=== PATIENT | female | born 1960 | race Caucasian/White ===

== ENCOUNTER 2019-12-10 17:58 | Emergency (ER) | payer OTHER, MEDICAID, SELFPAY ==
[2019-12-10 18:20] VITALS: BP 138/68; PULSE 102; RESP 20; O2SAT 98; BMI 24.7
--- NOTE | 2019-12-10 18:49 | ED_ITS ---
HPI - Abdominal Pain General Chief Complaint: Abdominal Pain Stated Complaint: cancer, constipation 7 days Time Seen by Provider: 12/10/19 18:37 Source: patient and family Mode of arrival: Ambulatory Limitations: no limitations History of Present Illness HPI narrative: Patient here for abdominal pain secondary to constipation. No bowel movement for the past 7 days. Patient is on opiates for cancer pain specifically with the spine. Patient diagnosed with advanced stage breast cancer with metastatic this early November 2019. Patient has lesions on the lower spine. Unable to sit or lay down. Patient prefers to remain in a seated position while in her room. Is able stand feels more comfortable at time standing. Has history of hemorrhoids as well. Patient states has constipation distant history with hemorrhoids as well. Magnesium citrate causes her hemorrhoids to bleed. She tried oral laxatives without resolved. Also 3 enemas today without resolved. Patient states early workup in November there might have been some inflammation on a CT scan regarding the colon. Related Data Home Medications Medication Instructions Recorded Confirmed ibuprofen 800 mg PO TID #0 12/03/16 Previous Rx's Medication Instructions Recorded methocarbamol [Robaxin-750] 750 mg PO QIDP PRN #40 tab 12/03/16 tramadol 0 tab PO Q6HP PRN #20 tab 12/03/16 Allergies Allergy/AdvReac Type Severity Reaction Status Date / Time aspirin [ASPIRIN] Allergy Unknown Unverified 09/12/17 12:45 Review of Systems Review of Systems Narrative: GENERAL: Denies chills, fatigue, malaise, fever, sweats. HEENT: Denies sinus pain, ear pain, sore throat, difficulty swallowing, dizziness. RESPIRATORY: Denies dyspnea, cough, wheezing, hemoptysis, sputum. CARDIOVASCULAR: Denies chest pain, palpitations, orthopnea, edema, GASTROINTESTINAL: Denies nausea, vomiting, complains of abdominal distention and constipation. : Denies dysuria, frequency, incontinence, hematuria, urinary retention. MUSCULOSKELETAL: denies weakness, joint pain, or bony pain SKIN: Denies rash, skin lesions, or other NEUROLOGIC: Denies weakness, headache, numbness, change in speech, confusion, seizures, incoordination. PSYCHIATRIC: No concerning psychosocial issues. ROS Unobtainable: All systems reviewed & are unremarkable except as noted in HPI and below Patient History Social History Smoking Status: Current every day smoker Smoking Status: Current every day smoker Substance Use Type: does not use Exam Narrative Exam Narrative: GENERAL: patient appears stated age. Well-nourished, well- developed patient, in no distress, not toxic HEAD: Atraumatic. Normocephalic. EYES: Pupils equal round and reactive. ENT: Nose without bleeding, purulent drainage. Throat without erythema, tonsillar hypertrophy or exudate. Airway patent. NECK: Trachea midline. Non tender CARDIOVASCULAR: Regular rate and rhythm without murmurs, gallops, or rubs. RESPIRATORY: Clear to auscultation. Breath sounds equal bilaterally. No wheezes, rales, or rhonchi. GASTROINTESTINAL: Abdomen soft, slightly distended normal bowel sounds, no peritoneal signs, slightly diffusely tender EXTREMITIES: No edema or joint tenderness. BACK: Limited range of motion due to chronic pain. Patient prefers to stand. Requires assist with maneuvering from walker to the bed. Has spasms on bilateral paralumbar and parathoracic muscles. NEURO: AOx3. SKIN: No rash or erythema of visible areas Initial Vital Signs Initial Vital Signs: Vital Signs Pulse Rate 102 H 12/10/19 18:20 Respiratory Rate 20 12/10/19 18:20 Blood Pressure 138/68 12/10/19 18:20 Pulse Oximetry 98 12/10/19 18:20 Course Course Course Narrative: Patient has been very uncomfortable with her back pain throughout stay here. There is a new compression fracture that has exacerbated her back pain. She does have muscle spasms. Enema was given but unsuccessful w ith stool output. Patient does not want to stay any longer in desires to go home and keep her appointment tomorrow that she has. Orders Ordered: ED Orders 12/10/19 18:48 CT abdomen pelvis wo con Stat 12/10/19 19:15 Complete Blood Count AUTO DIFF Stat Comprehensive Metabolic Panel Stat Discontinued Medications Diazepam (Valium) 5 mg IV NOW ONE Stop: 12/10/19 20:34 Last Admin: 12/10/19 20:46 Dose: 5 mg Documented by: INGRID Diazepam (Valium) 2.5 mg IV NOW ONE Stop: 12/10/19 22:53 Last Admin: 12/10/19 22:57 Dose: 2.5 mg Documented by: MMCFARL Sodium Chloride (Normal Saline 0.9%) 1,000 mls @ 1,000 mls/hr IV BOLUS ONE Stop: 12/10/19 19:46 Last Infusion: 12/10/19 21:34 Dose: 0 mls/hr Documented by: Admin: 12/10/19 19:37 Dose: 1,000 mls/hr Documented by: INGRID Methylnaltrexone [place] (Relistor) 12 mg SUBCUT NOW ONE Stop: 12/10/19 19:46 Last Admin: 12/10/19 19:54 Dose: 12 mg Documented by: INGRID Mineral Oil (Mineral Oil Enema) 1 each NV NOW ONE Stop: 12/10/19 22:23 Last Admin: 12/10/19 23:08 Dose: 1 each Documented by: CAYLA Morphine Sulfate (Morphine) 4 mg IV NOW ONE Stop: 12/10/19 19:26 Last Admin: 12/10/19 19:34 Dose: 4 mg Documented by: INGRID Ondansetron HCl (Zofran) 4 mg IV NOW ONE Stop: 12/10/19 19:26 Last Admin: 12/10/19 21:21 Dose: Not Given Documented by: CAYLA Reevaluation(s) Reevaluation #1: Patient no longer desires to stay for any more attempts for enemas or for bowel relief. Patient and desire discharge home. Does not want ortho spine contacted or referred to another hospital. She desires discharge home. Time: 00:39 Consultations Consultation #1: s/w dr jett, orthopedics, patient can follow-up with family physician/primary care for referral to Ortho Spine. No acute intervention indicated at this time Time: 00:52 Vital Signs Vital signs: Vital Signs - 8 hr 12/10/19 22:38 12/11/19 01:12 Temperature 98.4 F Pulse Rate 63 Respiratory Rate 12 Blood Pressure 168/90 H Pulse Oximetry 99 MDM - Abdominal Pain Lab Data Result diagrams: 12/10/19 19:15 12/10/19 19:15 Labs: Lab Results 12/10/19 12/10/19 Range/Units 19:15 19:15 WBC 8.2 (4.5-11.0) X10^3/uL RBC 4.11 (4.0-5.2) X10^6/uL Hgb 12.6 (12.0-16.0) g/dL Hct 37.1 (36-46) % MCV 90.4 (80-100) fL MCH 30.7 (26-34) PG MCHC 33.9 (30-36) % RDW 17.6 H (11.6-14.8) % Plt Count 342 (150-400) X10^3/uL Neut % (Auto) 64.3 (50-75) % Lymph % (Auto) 20.9 L (25-40) % [place] % (Auto) 11.2 (3-14) % Eos % (Auto) 2.7 (2-4) % Baso % (Auto) 0.9 (0-2) % Neut # (Auto) 5300 (7116-3061) /uL Lymph # (Auto) 1700 (3251-4659) /uL [place] # (Auto) 900 (0-900) /uL Eos # (Auto) 200 (0-450) /uL Baso # (Auto) 100 (0-100) /uL Sodium 134 L (137-145) mmol/L Potassium 4.1 (3.4-5.1) mmol/L Chloride 101 (98-107) mmol/L Carbon Dioxide 17 L (22-32) mmol/L BUN 6 L (7-17) mg/dL Creatinine 0.69 (0.52-1.04) mg/dL Estimated GFR > 60.0 (>60) mL/min BUN/Creatinine Ratio 8.7 (6-22) Glucose 89 (80-110) mg/dL Calcium 9.8 (8.4-10.2) mg/dL Total Bilirubin 0.5 (0.2-1.3) mg/dL AST 36 (14-36) IU/L ALT 11 (<35) IU/L Alkaline Phosphatase 617 H (38-126) U/L Total Protein 8.2 (6.3-8.2) g/dL Albumin 4.5 (3.5-5.0) g/dL Globulin 3.7 (1.7-4.1) g/dL Albumin/Globulin Ratio 1.2 (1.0-2.8) Imaging Data CT scan - abdomen/pelvis: Radiologist's Impression: [address] [address] [address] Scan Report Signed Patient: Megan JimMR#: [id number] : 8Acct:[id number] Age/Sex: 59 / FDate of Service: 12/10/19 Loc: ED Accession Number: [id number] Procedure: CT abdomen pelvis wo con Ordering Provider: Bert Mullins MD PROCEDURE: CT ABDOMEN PELVIS WO CON INDICATIONS: Abdominal pain TECHNIQUE: Noncontrast 5 mm thick sections acquired from the diaphragms to the symphysis. 5 mm thick coronal and sagittal reformats were then performed. For radiation dose reduction, the following was used: automated exposure control, adjustment of mA and/or kV according to patient size. COMPARISON: [facility], CT, CT CHEST ABDOMEN PELVIS WITH CONTRAST, 11/01/2019, 15:00. FINDINGS: Image quality: Excellent. Lung bases: There are small effusions bilaterally, decreased compared to 11/01/2019. Heart size is normal. There is a small hiatal hernia. Urinary system: Both kidneys are normal in size. No kidney stones. No hydronephrosis or perinephric fat stranding. Both ureters appear non-dilated throughout their expected courses. Bladder wall thickness is normal; no calcified bladder stones. Other solid organs: Liver is normal in size. Gallbladder is normal. Pancreas is normal in contours. Spleen is normal in size. No adrenal nodules. Peritoneum and bowel: There is a large amount of stool in colon. Unenhanced bowel loops demonstrate normal wall thickness and caliber. No free fluid or air. Nodes and vessels: No retroperitoneal or mesenteric adenopathy by size criteria. Aorta and inferior vena cava are normal in caliber. Abdominal wall: No ventral hernias. Pelvis: No free pelvic fluid. No inguinal hernias or adenopathy. Bones: Extensive osseous metastasis with mixed lytic and blastic lesions. Moderate compression fracture of T11, secondary to pathological fracture. This finding is new since 11/01/2019. No vertebral body compression fractures. IMPRESSION: 1. No acute intra-abdominal or pelvic process. The exam, however, is limited in the absence of IV and oral contrast. 2. A large amount of stool in colon. 3. Small pleural effusions bilaterally, decreased compared to the last CT on 11/01/2019. 4. Small hiatal hernia. 5. Extensive osseous metastases. 6. New moderate compression fracture of T11, compatible with a pathological fracture. Dictated by: Chey Espinal M.D. on 12/10/2019 at 19:42 Approved by: Chey Espinal M.D. on 12/10/2019 at 19:51 MDM Narrative Medical decision making narrative: Spoke with patient regarding compression fracture. No neuro deficits. Patient desires to follow up with her providers. Has an appointment tomorrow with her provider. No neuro deficits. Discharge Plan Departure Patient Disposition: Home Clinical Impression: Compression fracture Constipation Qualifiers: Constipation type: unspecified constipation type Qualified Code(s): K59.00 - Constipation, unspecified Discharge Date/Time: 12/11/19 01:12 Instructions: Vertebral Compression Fracture, DI for Constipation Activity Restrictions/Additional Instructions: Return immediately if worse or if any concerns or questions. See your doctor tomorrow as scheduled. Records will be available for your doctor regarding tests that were done tonight. See family doctor regarding compression fracture in of the vertebrae and referral to Ortho clinical documentation specialist. Continue home medications Prescriptions: No Action ibuprofen 800 MG tablet 800 mg PO TID Qty: 0 RF: 0 tramadol 50 MG tablet 0 tab PO Q6HP PRNQty: 20 RF: 0 methocarbamol [Robaxin-750] 750 MG tablet 750 mg PO QIDP PRNQty: 40 RF: 0
[2019-12-10 19:20] LABS: Add Manual Diff / Slide Review NO; Basophils Absolute Auto 100 /uL (0-100); Basophils Percent Auto 0.9 % (0-2); Eosinophils Absolute Auto 200 /uL (0-450); Eosinophils Percent Auto 2.7 % (2-4); Hematocrit 37.1 % (36-46); Hemoglobin 12.6 g/dL (12.0-16.0); Lymphocytes Absolute Auto 1700 /uL (1100-4500); Lymphocytes Percent Auto 20.9 % (25-40); Mean Corpuscular HGB Conc 33.9 % (30-36); Mean Corpuscular Hemoglobin 30.7 PG (26-34); Mean Corpuscular Volume 90.4 fL (80-100); Monocytes Absolute Auto 900 /uL (0-900); Monocytes Percent Auto 11.2 % (3-14); Neutrophils Absolute Auto 5300 /uL (1500-7000); Neutrophils Percent Auto 64.3 % (50-75); Platelet Count 342 X10^3/uL (150-400); Red Blood Cell Count 4.11 X10^6/uL (4.0-5.2); Red Cell Distribution Width 17.6 % (11.6-14.8); White Blood Cell Count 8.2 X10^3/uL (4.5-11.0)
[2019-12-10 19:32] LABS: Alanine Aminotransferase 11 IU/L (<35); Albumin 4.5 g/dL (3.5-5.0); Albumin Globulin Ratio 1.2 (1.0-2.8); Alkaline Phosphatase 617 U/L (38-126); Aspartate Aminotransferase 36 IU/L (14-36); BUN Creatinine Ratio 8.7 (6-22); Bilirubin Total 0.5 mg/dL (0.2-1.3); Blood Urea Nitrogen 6 mg/dL (7-17); Calcium 9.8 mg/dL (8.4-10.2); Carbon Dioxide 17 mmol/L (22-32); Chloride 101 mmol/L (98-107); Estimated Glomerular Filt Rate > 60.0 mL/min (>60); Globulin 3.7 g/dL (1.7-4.1); Glucose 89 mg/dL (80-110); HEMOLYSIS < 15 (0-50); Potassium 4.1 mmol/L (3.4-5.1); Sodium 134 mmol/L (137-145); Total Protein 8.2 g/dL (6.3-8.2)
[2019-12-10] MEDS: MORPHINE 4 MG/ML INJ IV (19:34)
[2019-12-10] MEDS: SODIUM CHLORIDE 0.9% 1,000 ML 1000 ML IV (19:37)
[2019-12-10] MEDS: METHYLNALTREXONE 12 MG/0.6 ML VIAL SUBCUT (19:54)
[2019-12-10] MEDS: diazePAM 10 MG/2 ML SYRINGE 5 MG IV (20:46)
[2019-12-10 22:38] VITALS: TEMP 36.9
[2019-12-10] MEDS: diazePAM 10 MG/2 ML SYRINGE 2.5 MG IV (22:57)
[2019-12-10] MEDS: MINERAL OIL 1 EACH ENEMA PR (23:08)
[2019-12-11 01:12] VITALS: BP 168/90; PULSE 63; RESP 12; O2SAT 99
== END 2019-12-11 01:12 | disposition home or self-care (01) ==
PROVIDERS: Emergency Provider Emergency Medicine
DX: M48.50XA Collapsed vertebra, not elsewhere classified, site unspecified, initial encounter for fracture (principal); K59.00 Constipation, unspecified; C50.919 Malignant neoplasm of unspecified site of unspecified female breast
CPT/HCPCS: 74176; 80053; 85025; 96361; 96372; 96374; 96375; 96376; 99284; J2270; J3360

== ENCOUNTER → 2020-01-28 08:51 | Outpatient (CLI) | payer OTHER, MEDICAID, SELFPAY ==
[2020-01-28 09:57] LABS: Add Manual Diff / Slide Review NO; Basophils Absolute Auto 0 /uL (0-100); Basophils Percent Auto 1.9 % (0-2); Eosinophils Absolute Auto 0 /uL (0-450); Eosinophils Percent Auto 2.1 % (2-4); Hematocrit 35.6 % (36-46); Hemoglobin 11.8 g/dL (12.0-16.0); Lymphocytes Absolute Auto 300 /uL (1100-4500); Lymphocytes Percent Auto 14.1 % (25-40); Mean Corpuscular HGB Conc 33.3 % (30-36); Mean Corpuscular Hemoglobin 31.7 PG (26-34); Mean Corpuscular Volume 95.3 fL (80-100); Monocytes Absolute Auto 200 /uL (0-900); Monocytes Percent Auto 7.4 % (3-14); Neutrophils Absolute Auto 1500 /uL (1500-7000); Neutrophils Percent Auto 74.5 % (50-75); Platelet Count 315 X10^3/uL (150-400); Red Blood Cell Count 3.73 X10^6/uL (4.0-5.2); Red Cell Distribution Width 19.1 % (11.6-14.8); White Blood Cell Count 2.1 X10^3/uL (4.5-11.0)
== END ==
PROVIDERS: Referring Provider Internal Medicine Hematology & Oncology; Visit Provider Internal Medicine Hematology & Oncology
DX: C50.011 Malignant neoplasm of nipple and areola, right female breast (principal)
CPT/HCPCS: 36415; 85025

== ENCOUNTER → 2020-04-08 10:09 | Outpatient (CLI) | payer OTHER, MEDICAID, SELFPAY ==
[2020-04-08 11:24] LABS: Add Manual Diff / Slide Review NO; Basophils Absolute Auto 100 /uL (0-100); Basophils Percent Auto 2.8 % (0-2); Eosinophils Absolute Auto 0 /uL (0-450); Hemoglobin 11.1 g/dL (12.0-16.0); Lymphocytes Absolute Auto 500 /uL (1100-4500); Lymphocytes Percent Auto 15.6 % (25-40); Mean Corpuscular HGB Conc 34.7 % (30-36); Mean Corpuscular Hemoglobin 35.4 PG (26-34); Monocytes Absolute Auto 400 /uL (0-900); Monocytes Percent Auto 12.5 % (3-14); Neutrophils Absolute Auto 2200 /uL (1500-7000); Neutrophils Percent Auto 68.1 % (50-75); Platelet Count 379 X10^3/uL (150-400); Red Blood Cell Count 3.14 X10^6/uL (4.0-5.2); Red Cell Distribution Width 19.8 % (11.6-14.8); White Blood Cell Count 3.3 X10^3/uL (4.5-11.0)
[2020-04-08 11:38] LABS: Alanine Aminotransferase 8 IU/L (<35); Albumin 4.3 g/dL (3.5-5.0); Albumin Globulin Ratio 1.2 (1.0-2.8); Alkaline Phosphatase 117 U/L (38-126); Aspartate Aminotransferase 32 IU/L (14-36); BUN Creatinine Ratio 27.8 (6-22); Bilirubin Total 0.4 mg/dL (0.2-1.3); Blood Urea Nitrogen 20 mg/dL (7-17); Calcium 8.9 mg/dL (8.4-10.2); Carbon Dioxide 26 mmol/L (22-32); Chloride 104 mmol/L (98-107); Estimated Glomerular Filt Rate > 60.0 mL/min (>60); Globulin 3.5 g/dL (1.7-4.1); Glucose 116 mg/dL (80-110); HEMOLYSIS < 15 (0-50); Potassium 4.6 mmol/L (3.4-5.1); Sodium 135 mmol/L (137-145); Total Protein 7.8 g/dL (6.3-8.2)
== END ==
PROVIDERS: Referring Provider Internal Medicine Hematology & Oncology; Visit Provider Internal Medicine Hematology & Oncology
DX: C50.919 Malignant neoplasm of unspecified site of unspecified female breast (principal); C78.2 Secondary malignant neoplasm of pleura; C79.51 Secondary malignant neoplasm of bone
CPT/HCPCS: 36415; 80053; 85025

== ENCOUNTER 2020-06-09 16:36 | Emergency (ER) | payer OTHER, MEDICAID, SELFPAY ==
[2020-06-09] VITALS (30 sets, daily range): BP systolic 88–127; BP diastolic 50–86; PULSE 102–114; RESP 14–28; TEMP 36.2; O2SAT 88–100
--- NOTE | 2020-06-09 16:51 | ED.GENADULT ---
HPI - General Adult <Annmarie Argueta MD - Last Filed: 06/10/20 07:37> General Chief complaint: Weakness Stated complaint: sent cause of anemia Time Seen by Provider: 06/09/20 16:50 Source: patient Mode of arrival: Ambulatory History of Present Illness HPI narrative: 60-year-old woman with a history of metastatic breast cancer with lesions to her spine currently seen at [facility] in [place]. She currently has multiple pathologic fractures in vertebrae enlarged lytic lesion in multiple ribs. Apparently had recent blood work that revealed significant anemia. This suggested that she come to the emergency room for further evaluation. She is significantly dyspneic without obvious respiratory distress or significant work of breathing with simply moving from the wheelchair to the table. Complains of significant bilateral leg weakness getting worse over the past number of weeks. Related Data Home Medications Medication Instructions Recorded Confirmed ibuprofen 800 mg PO TID #0 12/03/16 Previous Rx's Medication Instructions Recorded methocarbamol [Robaxin-750] 750 mg PO QIDP PRN #40 tab 12/03/16 tramadol 0 tab PO Q6HP PRN #20 tab 12/03/16 Allergies Allergy/AdvReac Type Severity Reaction Status Date / Time aspirin [ASPIRIN] Allergy Unknown Verified 06/09/20 17:22 <Corie Caballero DO - Last Filed: 06/09/20 23:49> Review of Systems ROS Unobtainable: All systems reviewed & are unremarkable except as noted in HPI and below Constitutional Constitutional: Denies chills, Denies fever(s), Denies lethargy and Denies weakness ENT Ears, Nose, Mouth, and Throat: Denies dizziness Cardiovascular Cardiovascular: Denies chest pain, Denies syncope, Reports dyspnea, Reports dyspnea on exertion and Denies orthopnea Respiratory Respiratory: Denies chest congestion, Denies cough, Denies pain with cough, Reports dyspnea and Reports dyspnea on exertion Gastrointestinal Gastrointestinal: Denies abdominal pain, Denies change in bowel habits, Denies diarrhea, Denies nausea and Denies vomiting Musculoskeletal Musculoskeletal: Denies back pain and Denies myalgias Integumentary/Breasts Skin/Breast: Denies pruritus, Denies erythema, Denies rash and Denies wounds Neurologic Neurologic: Denies dizziness, Denies syncope and Denies weakness Patient History <Annmarie Argueta MD - Last Filed: 06/10/20 07:37> Social History Smoking Status: Current every day smoker Smoking Status: Current every day smoker Substance Use Type: does not use Exam <Annmarie Argueta MD - Last Filed: 06/10/20 07:37> Initial Vital Signs Initial Vital Signs: Vital Signs Temperature 97.1 F L 06/09/20 16:40 Pulse Rate 112 H 06/09/20 16:40 Respiratory Rate 24 06/09/20 16:40 Blood Pressure 118/81 06/09/20 16:40 Pulse Oximetry 92 06/09/20 16:40 <Corie Caballero DO - Last Filed: 06/09/20 23:49> Initial Vital Signs Initial Vital Signs: Vital Signs Temperature 97.1 F L 06/09/20 16:40 Pulse Rate 112 H 06/09/20 16:40 Respiratory Rate 24 06/09/20 16:40 Blood Pressure 118/81 06/09/20 16:40 Pulse Oximetry 92 06/09/20 16:40 GENERAL: Alert uncomfortable chronically ill female HEENT: Head atraumatic,EOMI, pupils reactive, face symmetric, moist mucous membranes CARDIOVASCULAR: Regular tachycardic no murmur, no rub RESPIRATORY: Decreased breath sounds bilaterally ABDOMEN: Soft, nontender. Normoactive bowel sounds all 4 quadrants. No guarding or rebound. EXTREMITIES: Normal range of motion, no clubbing or edema. Neurovascularly intact NEUROLOGICAL: Alert and oriented x4.Normal gait and speech. Cranial nerves II through XII grossly intact. SKIN: Warm, dry, no laceration, no petechiae, no rashes or lesions. Course <Annmarie Argueta MD - Last Filed: 06/10/20 07:37> Orders Ordered: Discontinued Medications Sodium Chloride (Normal Saline 0.9%) 1,000 mls @ 150 mls/hr IV CONT AMBER Last Infusion: 06/09/20 22:40 Dose: 150 mls/hr Documented by: Admin: 06/09/20 17:15 Dose: 150 mls/hr Documented by: DUNIA Morphine Sulfate (Morphine 2 Mg/Ml Inj) 2 mg IV NOW ONE Stop: 06/09/20 21:58 Last Admin: 06/09/20 22:10 Dose: 2 mg Documented by: JULIO Ondansetron HCl (Ondansetron 4 Mg/2 Ml Inj) 4 mg IV NOW ONE Stop: 06/09/20 21:58 Last Admin: 06/09/20 22:10 Dose: 4 mg Documented by: JULIO Vital Signs Vital signs: Vital Signs - 8 hr 06/09/20 23:46 Pulse Rate 106 H Respiratory Rate 23 Blood Pressure 103/65 Pulse Oximetry 99 <Corie Caballero DO - Last Filed: 06/09/20 23:49> Orders Ordered: Discontinued Medications Sodium Chloride (Normal Saline 0.9%) 1,000 mls @ 150 mls/hr IV CONT AMBER Last Infusion: 06/09/20 22:40 Dose: 150 mls/hr Documented by: Admin: 06/09/20 17:15 Dose: 150 mls/hr Documented by: UDNIA Morphine Sulfate (Morphine 2 Mg/Ml Inj) 2 mg IV NOW ONE Stop: 06/09/20 21:58 Last Admin: 06/09/20 22:10 Dose: 2 mg Documented by: JULIO Ondansetron HCl (Ondansetron 4 Mg/2 Ml Inj) 4 mg IV NOW ONE Stop: 06/09/20 21:58 Last Admin: 06/09/20 22:10 Dose: 4 mg Documented by: JULIO Vital Signs Vital signs: Vital Signs - 8 hr 06/09/20 23:46 Pulse Rate 106 H Respiratory Rate 23 Blood Pressure 103/65 Pulse Oximetry 99 Medical Decision Making <Annmarie Argueta MD - Last Filed: 06/10/20 07:37> Lab Data Result diagrams: 06/09/20 17:05 06/09/20 17:23 Labs: Lab Results 06/09/20 06/09/20 06/09/20 Range/Units 17:05 17:17 17:23 WBC 5.9 (4.5-11.0) X10^3/uL RBC 2.24 L (4.0-5.2) X10^6/uL Hgb 8.9 L (12.0-16.0) g/dL Hct 26.5 L (36-46) % MCV 118.3 H (80-100) fL MCH 39.8 H (26-34) PG MCHC 33.6 (30-36) % RDW 19.0 H (11.6-14.8) % Plt Count 195 (150-400) X10^3/uL Neut % (Auto) 82.9 H (50-75) % Lymph % (Auto) 9.9 L (25-40) % Fajardo % (Auto) 5.2 (3-14) % Eos % (Auto) 0.4 L (2-4) % Baso % (Auto) 1.6 (0-2) % Neut # (Auto) 4900 (5876-7202) /uL Lymph # (Auto) 600 L (3592-7617) /uL Fajardo # (Auto) 300 (0-900) /uL Eos # (Auto) 0 (0-450) /uL Baso # (Auto) 100 (0-100) /uL RBC Morphology Not Reportable Anisocytosis 3+ H Macrocytosis 2+ H PT 15.3 H (10.1-12.7) SECONDS INR 1.3 (0.9-1.3) D-Dimer (<230) ng/mL Sodium (137-145) mmol/L Potassium (3.4-5.1) mmol/L Chloride (98-107) mmol/L Carbon Dioxide (22-32) mmol/L BUN (7-17) mg/dL Creatinine (0.52-1.04) mg/dL Estimated GFR (>60) mL/min BUN/Creatinine Ratio (6-22) Glucose (80-110) mg/dL Lactate (0.7-2.1) mmol/L Calcium (8.4-10.2) mg/dL Total Bilirubin (0.2-1.3) mg/dL AST (14-36) IU/L ALT (<35) IU/L Alkaline Phosphatase (38-126) U/L Troponin I (0.01-0.034) ng/mL NT-Pro-B Natriuret Pep (<125) pg/mL Total Protein (6.3-8.2) g/dL Albumin (3.5-5.0) g/dL Globulin (1.7-4.1) g/dL Albumin/Globulin Ratio (1.0-2.8) SARS-CoV-2 (PCR) Negative (Negative) Blood Type Antibody Screen 06/09/20 06/09/20 06/09/20 Range/Units 17:23 17:23 17:23 WBC (4.5-11.0) X10^3/uL RBC (4.0-5.2) X10^6/uL Hgb (12.0-16.0) g/dL Hct (36-46) % MCV (80-100) fL MCH (26-34) PG MCHC (30-36) % RDW (11.6-14.8) % Plt Count (150-400) X10^3/uL Neut % (Auto) (50-75) % Lymph % (Auto) (25-40) % Fajardo % (Auto) (3-14) % Eos % (Auto) (2-4) % Baso % (Auto) (0-2) % Neut # (Auto) (7817-8499) /uL Lymph # (Auto) (5420-4519) /uL Fajardo # (Auto) (0-900) /uL Eos # (Auto) (0-450) /uL Baso # (Auto) (0-100) /uL RBC Morphology Anisocytosis Macrocytosis PT (10.1-12.7) SECONDS INR (0.9-1.3) D-Dimer (<230) ng/mL Sodium 133 L (137-145) mmol/L Potassium 5.1 (3.4-5.1) mmol/L Chloride 104 (98-107) mmol/L Carbon Dioxide 22 (22-32) mmol/L BUN 36 H (7-17) mg/dL Creatinine 1.27 H (0.52-1.04) mg/dL Estimated GFR 42.6 L (>60) mL/min BUN/Creatinine Ratio 28.3 H (6-22) Glucose 128 H (80-110) mg/dL Lactate 2.2 H (0.7-2.1) mmol/L Calcium 9.1 (8.4-10.2) mg/dL Total Bilirubin 1.1 (0.2-1.3) mg/dL AST 133 H (14-36) IU/L ALT 89 H (<35) IU/L Alkaline Phosphatase 157 H (38-126) U/L Troponin I 0.097 H (0.01-0.034) ng/mL NT-Pro-B Natriuret Pep (<125) pg/mL Total Protein 7.2 (6.3-8.2) g/dL Albumin 4.0 (3.5-5.0) g/dL Globulin 3.2 (1.7-4.1) g/dL Albumin/Globulin Ratio 1.3 (1.0-2.8) SARS-CoV-2 (PCR) (Negative) Blood Type O Positive Antibody Screen Negative 06/09/20 06/09/20 06/09/20 Range/Units 17:23 17:23 19:41 WBC (4.5-11.0) X10^3/uL RBC (4.0-5.2) X10^6/uL Hgb (12.0-16.0) g/dL Hct (36-46) % MCV (80-100) fL MCH (26-34) PG MCHC (30-36) % RDW (11.6-14.8) % Plt Count (150-400) X10^3/uL Neut % (Auto) (50-75) % Lymph % (Auto) (25-40) % Fajardo % (Auto) (3-14) % Eos % (Auto) (2-4) % Baso % (Auto) (0-2) % Neut # (Auto) (9270-3302) /uL Lymph # (Auto) (9407-9593) /uL Fajardo # (Auto) (0-900) /uL Eos # (Auto) (0-450) /uL Baso # (Auto) (0-100) /uL RBC Morphology Anisocytosis Macrocytosis PT (10.1-12.7) SECONDS INR (0.9-1.3) D-Dimer 2745 H (<230) ng/mL Sodium (137-145) mmol/L Potassium (3.4-5.1) mmol/L Chloride (98-107) mmol/L Carbon Dioxide (22-32) mmol/L BUN (7-17) mg/dL Creatinine (0.52-1.04) mg/dL Estimated GFR (>60) mL/min BUN/Creatinine Ratio (6-22) Glucose (80-110) mg/dL Lactate 1.8 (0.7-2.1) mmol/L Calcium (8.4-10.2) mg/dL Total Bilirubin (0.2-1.3) mg/dL AST (14-36) IU/L ALT (<35) IU/L Alkaline Phosphatase (38-126) U/L Troponin I (0.01-0.034) ng/mL NT-Pro-B Natriuret Pep 96199 H (<125) pg/mL Total Protein (6.3-8.2) g/dL Albumin (3.5-5.0) g/dL Globulin (1.7-4.1) g/dL Albumin/Globulin Ratio (1.0-2.8) SARS-CoV-2 (PCR) (Negative) Blood Type Antibody Screen 06/09/20 Range/Units 19:41 WBC (4.5-11.0) X10^3/uL RBC (4.0-5.2) X10^6/uL Hgb (12.0-16.0) g/dL Hct (36-46) % MCV (80-100) fL MCH (26-34) PG MCHC (30-36) % RDW (11.6-14.8) % Plt Count (150-400) X10^3/uL Neut % (Auto) (50-75) % Lymph % (Auto) (25-40) % Fajardo % (Auto) (3-14) % Eos % (Auto) (2-4) % Baso % (Auto) (0-2) % Neut # (Auto) (3412-0951) /uL Lymph # (Auto) (8498-1146) /uL Fajardo # (Auto) (0-900) /uL Eos # (Auto) (0-450) /uL Baso # (Auto) (0-100) /uL RBC Morphology Anisocytosis Macrocytosis PT (10.1-12.7) SECONDS INR (0.9-1.3) D-Dimer (<230) ng/mL Sodium (137-145) mmol/L Potassium (3.4-5.1) mmol/L Chloride (98-107) mmol/L Carbon Dioxide (22-32) mmol/L BUN (7-17) mg/dL Creatinine (0.52-1.04) mg/dL Estimated GFR (>60) mL/min BUN/Creatinine Ratio (6-22) Glucose (80-110) mg/dL Lactate (0.7-2.1) mmol/L Calcium (8.4-10.2) mg/dL Total Bilirubin (0.2-1.3) mg/dL AST (14-36) IU/L ALT (<35) IU/L Alkaline Phosphatase (38-126) U/L Troponin I 0.093 H (0.01-0.034) ng/mL NT-Pro-B Natriuret Pep (<125) pg/mL Total Protein (6.3-8.2) g/dL Albumin (3.5-5.0) g/dL Globulin (1.7-4.1) g/dL Albumin/Globulin Ratio (1.0-2.8) SARS-CoV-2 (PCR) (Negative) Blood Type Antibody Screen <Corie Caballero DO - Last Filed: 06/09/20 23:49> Lab Data Lab results reviewed: Yes I reviewed the patient's lab results. Labs: Lab Results 06/09/20 06/09/20 06/09/20 Range/Units 17:05 17:17 17:23 WBC 5.9 (4.5-11.0) X10^3/uL RBC 2.24 L (4.0-5.2) X10^6/uL Hgb 8.9 L (12.0-16.0) g/dL Hct 26.5 L (36-46) % MCV 118.3 H (80-100) fL MCH 39.8 H (26-34) PG MCHC 33.6 (30-36) % RDW 19.0 H (11.6-14.8) % Plt Count 195 (150-400) X10^3/uL Neut % (Auto) 82.9 H (50-75) % Lymph % (Auto) 9.9 L (25-40) % Fajardo % (Auto) 5.2 (3-14) % Eos % (Auto) 0.4 L (2-4) % Baso % (Auto) 1.6 (0-2) % Neut # (Auto) 4900 (7566-1292) /uL Lymph # (Auto) 600 L (6622-7900) /uL Fajardo # (Auto) 300 (0-900) /uL Eos # (Auto) 0 (0-450) /uL Baso # (Auto) 100 (0-100) /uL RBC Morphology Not Reportable Anisocytosis 3+ H Macrocytosis 2+ H PT 15.3 H (10.1-12.7) SECONDS INR 1.3 (0.9-1.3) D-Dimer (<230) ng/mL Sodium (137-145) mmol/L Potassium (3.4-5.1) mmol/L Chloride (98-107) mmol/L Carbon Dioxide (22-32) mmol/L BUN (7-17) mg/dL Creatinine (0.52-1.04) mg/dL Estimated GFR (>60) mL/min BUN/Creatinine Ratio (6-22) Glucose (80-110) mg/dL Lactate (0.7-2.1) mmol/L Calcium (8.4-10.2) mg/dL Total Bilirubin (0.2-1.3) mg/dL AST (14-36) IU/L ALT (<35) IU/L Alkaline Phosphatase (38-126) U/L Troponin I (0.01-0.034) ng/mL NT-Pro-B Natriuret Pep (<125) pg/mL Total Protein (6.3-8.2) g/dL Albumin (3.5-5.0) g/dL Globulin (1.7-4.1) g/dL Albumin/Globulin Ratio (1.0-2.8) SARS-CoV-2 (PCR) Negative (Negative) Blood Type Antibody Screen 06/09/20 06/09/20 06/09/20 Range/Units 17:23 17:23 17:23 WBC (4.5-11.0) X10^3/uL RBC (4.0-5.2) X10^6/uL Hgb (12.0-16.0) g/dL Hct (36-46) % MCV (80-100) fL MCH (26-34) PG MCHC (30-36) % RDW (11.6-14.8) % Plt Count (150-400) X10^3/uL Neut % (Auto) (50-75) % Lymph % (Auto) (25-40) % Fajardo % (Auto) (3-14) % Eos % (Auto) (2-4) % Baso % (Auto) (0-2) % Neut # (Auto) (3043-6331) /uL Lymph # (Auto) (2163-9242) /uL Fajardo # (Auto) (0-900) /uL Eos # (Auto) (0-450) /uL Baso # (Auto) (0-100) /uL RBC Morphology Anisocytosis Macrocytosis PT (10.1-12.7) SECONDS INR (0.9-1.3) D-Dimer (<230) ng/mL Sodium 133 L (137-145) mmol/L Potassium 5.1 (3.4-5.1) mmol/L Chloride 104 (98-107) mmol/L Carbon Dioxide 22 (22-32) mmol/L BUN 36 H (7-17) mg/dL Creatinine 1.27 H (0.52-1.04) mg/dL Estimated GFR 42.6 L (>60) mL/min BUN/Creatinine Ratio 28.3 H (6-22) Glucose 128 H (80-110) mg/dL Lactate 2.2 H (0.7-2.1) mmol/L Calcium 9.1 (8.4-10.2) mg/dL Total Bilirubin 1.1 (0.2-1.3) mg/dL AST 133 H (14-36) IU/L ALT 89 H (<35) IU/L Alkaline Phosphatase 157 H (38-126) U/L Troponin I 0.097 H (0.01-0.034) ng/mL NT-Pro-B Natriuret Pep (<125) pg/mL Total Protein 7.2 (6.3-8.2) g/dL Albumin 4.0 (3.5-5.0) g/dL Globulin 3.2 (1.7-4.1) g/dL Albumin/Globulin Ratio 1.3 (1.0-2.8) SARS-CoV-2 (PCR) (Negative) Blood Type O Positive Antibody Screen Negative 06/09/20 06/09/20 06/09/20 Range/Units 17:23 17:23 19:41 WBC (4.5-11.0) X10^3/uL RBC (4.0-5.2) X10^6/uL Hgb (12.0-16.0) g/dL Hct (36-46) % MCV (80-100) fL MCH (26-34) PG MCHC (30-36) % RDW (11.6-14.8) % Plt Count (150-400) X10^3/uL Neut % (Auto) (50-75) % Lymph % (Auto) (25-40) % Fajardo % (Auto) (3-14) % Eos % (Auto) (2-4) % Baso % (Auto) (0-2) % Neut # (Auto) (0334-1966) /uL Lymph # (Auto) (1649-4413) /uL Fajardo # (Auto) (0-900) /uL Eos # (Auto) (0-450) /uL Baso # (Auto) (0-100) /uL RBC Morphology Anisocytosis Macrocytosis PT (10.1-12.7) SECONDS INR (0.9-1.3) D-Dimer 2745 H (<230) ng/mL Sodium (137-145) mmol/L Potassium (3.4-5.1) mmol/L Chloride (98-107) mmol/L Carbon Dioxide (22-32) mmol/L BUN (7-17) mg/dL Creatinine (0.52-1.04) mg/dL Estimated GFR (>60) mL/min BUN/Creatinine Ratio (6-22) Glucose (80-110) mg/dL Lactate 1.8 (0.7-2.1) mmol/L Calcium (8.4-10.2) mg/dL Total Bilirubin (0.2-1.3) mg/dL AST (14-36) IU/L ALT (<35) IU/L Alkaline Phosphatase (38-126) U/L Troponin I (0.01-0.034) ng/mL NT-Pro-B Natriuret Pep 55406 H (<125) pg/mL Total Protein (6.3-8.2) g/dL Albumin (3.5-5.0) g/dL Globulin (1.7-4.1) g/dL Albumin/Globulin Ratio (1.0-2.8) SARS-CoV-2 (PCR) (Negative) Blood Type Antibody Screen 06/09/20 Range/Units 19:41 WBC (4.5-11.0) X10^3/uL RBC (4.0-5.2) X10^6/uL Hgb (12.0-16.0) g/dL Hct (36-46) % MCV (80-100) fL MCH (26-34) PG MCHC (30-36) % RDW (11.6-14.8) % Plt Count (150-400) X10^3/uL Neut % (Auto) (50-75) % Lymph % (Auto) (25-40) % Fajardo % (Auto) (3-14) % Eos % (Auto) (2-4) % Baso % (Auto) (0-2) % Neut # (Auto) (0722-2557) /uL Lymph # (Auto) (2246-5860) /uL Fajardo # (Auto) (0-900) /uL Eos # (Auto) (0-450) /uL Baso # (Auto) (0-100) /uL RBC Morphology Anisocytosis Macrocytosis PT (10.1-12.7) SECONDS INR (0.9-1.3) D-Dimer (<230) ng/mL Sodium (137-145) mmol/L Potassium (3.4-5.1) mmol/L Chloride (98-107) mmol/L Carbon Dioxide (22-32) mmol/L BUN (7-17) mg/dL Creatinine (0.52-1.04) mg/dL Estimated GFR (>60) mL/min BUN/Creatinine Ratio (6-22) Glucose (80-110) mg/dL Lactate (0.7-2.1) mmol/L Calcium (8.4-10.2) mg/dL Total Bilirubin (0.2-1.3) mg/dL AST (14-36) IU/L ALT (<35) IU/L Alkaline Phosphatase (38-126) U/L Troponin I 0.093 H (0.01-0.034) ng/mL NT-Pro-B Natriuret Pep (<125) pg/mL Total Protein (6.3-8.2) g/dL Albumin (3.5-5.0) g/dL Globulin (1.7-4.1) g/dL Albumin/Globulin Ratio (1.0-2.8) SARS-CoV-2 (PCR) (Negative) Blood Type Antibody Screen Imaging Data CT scan - chest: Radiologist's Impression: PROCEDURE: CT ANGIO CHEST PE PROTOCOL INDICATIONS: elevated d dimer TECHNIQUE: After the administration of intravenous contrast, 2 mm thick sections acquired from the pulmonary apices to the posterior costophrenic angles. 3-dimensional maximum intensity projection (MIP) coronal and sagittal reformats were then acquired through the thorax. For radiation dose reduction, the following was used: automated exposure control, adjustment of mA and/or kV according to patient size. COMPARISON: None. FINDINGS: Image quality: Excellent. Pulmonary arteries: Pulmonary arteries are normal in size, and demonstrate no intraluminal filling defects to suggest central pulmonary embolism. Lungs and pleura: Small left and moderate right pleural effusions with overlying passive atelectasis. Small scattered ground-glass airspace opacities in both lungs, left greater than right. No focal consolidation. Interlobular septal thickening and small volume fluid in the fissures. Mediastinum: Moderate-sized pericardial effusion. Normal heart size. Reflux of contrast into the central hepatic veins may indicate an element of diastolic dysfunction , potentially related to the effusion. Bones and chest wall: Numerous lytic and sclerotic metastases with pathologic rib and spine fractures. IMPRESSION: Moderate right and small left pleural effusions along with a moderate-sized pericardial effusion and evidence of mild to moderate interstitial pulmonary edema. Findings may represent cardiogenic pulmonary edema or third-spacing of fluids due to a separate cause. Reflux of contrast material into the central hepatic veins may indicate an element of diastolic dysfunction, potentially related to the pericardial effusion. No findings of pulmonary embolism. Multiple lytic and sclerotic osseous metastases with pathologic rib and spine fractures. Dictated by: Isidro Saldaña M.D. on 06/09/2020 at 19:00 Approved by: Isidro Saldaña M.D. on 06/09/2020 at 19:03 ECG Data Attestation: I personally reviewed and interpreted this ECG as follows: Prior ECG tracings: not available for review Interpretation: Sinus tachycardia rate 109 p.r. interval 131 QRS [address] changes MDM Narrative Medical decision making narrative: I received sign-out from Dr. Estrada I have seen evaluated patient myself The patient as found to have extremely elevated D-dimer she is sent for a CT angio. Results of CT show moderate pleural effusion and pericardial effusion. I have discussed these results with the patient, she states that she had it some fluid on her lungs before but fluid around her heart is new. She has remained hemodynamically stable while in the ED although she is requiring 2-4 L of oxygen. She states that he has had significant increased shortness of breath over the last few days that is significantly worse with exertion. Even just rearranging herself on the gurney she gets extremely short of breath. O2 sats decreased to the 80s when she is on room air. 22:00 Dr. Vinh Moe, Hematology-Oncology at [facility] is able to review patient's records. He confirms that pericardial effusion is new. He agrees with transfer for further evaluation and possible drainage. Patient's heart rate seems to be improving she is lying down on gurney blood pressure decreases to the 90s, she is given a 500 cc bolus Discharge Plan Departure Patient Disposition: [facility] Clinical Impression: Pleural effusion, Acute pericardial effusion Prescriptions: No Action ibuprofen 800 MG tablet 800 mg PO TID Qty: 0 RF: 0 tramadol 50 MG tablet 0 tab PO Q6HP PRNQty: 20 RF: 0 methocarbamol [Robaxin-750] 750 MG tablet 750 mg PO QIDP PRNQty: 40 RF: 0
[2020-06-09 17:10] LABS: Add Manual Diff / Slide Review NO; Basophils Absolute Auto 100 /uL (0-100); Basophils Percent Auto 1.6 % (0-2); Eosinophils Absolute Auto 0 /uL (0-450); Eosinophils Percent Auto 0.4 % (2-4); Hematocrit 26.5 % (36-46); Hemoglobin 8.9 g/dL (12.0-16.0); Lymphocytes Absolute Auto 600 /uL (1100-4500); Lymphocytes Percent Auto 9.9 % (25-40); Mean Corpuscular HGB Conc 33.6 % (30-36); Mean Corpuscular Hemoglobin 39.8 PG (26-34); Mean Corpuscular Volume 118.3 fL (80-100); Monocytes Absolute Auto 300 /uL (0-900); Monocytes Percent Auto 5.2 % (3-14); Neutrophils Absolute Auto 4900 /uL (1500-7000); Neutrophils Percent Auto 82.9 % (50-75); Platelet Count 195 X10^3/uL (150-400); Red Blood Cell Count 2.24 X10^6/uL (4.0-5.2); White Blood Cell Count 5.9 X10^3/uL (4.5-11.0)
[2020-06-09] MEDS: SODIUM CHLORIDE 0.9% 1,000 ML 150 ML IV (17:15)
[2020-06-09 17:28] LABS: Anisocytosis 3+; Macrocytosis 2+
[2020-06-09 17:41] LABS: COVID19 -Nasal RAPID Negative (Negative)
[2020-06-09 17:42] LABS: INR 1.3 (0.9-1.3); Prothrombin Time 15.3 SECONDS (10.1-12.7)
[2020-06-09 17:57] LABS: D Dimer 2745 ng/mL (<230)
--- NOTE | 2020-06-09 18:00 | DI.CT.S_ITS ---
PROCEDURE: CT ANGIO CHEST PE PROTOCOL INDICATIONS: elevated d dimer TECHNIQUE: After the administration of intravenous contrast, 2 mm thick sections acquired from the pulmonary apices to the posterior costophrenic angles. 3-dimensional maximum intensity projection (MIP) coronal and sagittal reformats were then acquired through the thorax. For radiation dose reduction, the following was used: automated exposure control, adjustment of mA and/or kV according to patient size. COMPARISON: None. FINDINGS: Image quality: Excellent. Pulmonary arteries: Pulmonary arteries are normal in size, and demonstrate no intraluminal filling defects to suggest central pulmonary embolism. Lungs and pleura: Small left and moderate right pleural effusions with overlying passive atelectasis. Small scattered ground-glass airspace opacities in both lungs, left greater than right. No focal consolidation. Interlobular septal thickening and small volume fluid in the fissures. Mediastinum: Moderate-sized pericardial effusion. Normal heart size. Reflux of contrast into the central hepatic veins may indicate an element of diastolic dysfunction , potentially related to the effusion. Bones and chest wall: Numerous lytic and sclerotic metastases with pathologic rib and spine fractures. IMPRESSION: Moderate right and small left pleural effusions along with a moderate-sized pericardial effusion and evidence of mild to moderate interstitial pulmonary edema. Findings may represent cardiogenic pulmonary edema or third-spacing of fluids due to a separate cause. Reflux of contrast material into the central hepatic veins may indicate an element of diastolic dysfunction, potentially related to the pericardial effusion. No findings of pulmonary embolism. Multiple lytic and sclerotic osseous metastases with pathologic rib and spine fractures. Dictated by: Isidro Saldaña M.D. on 06/09/2020 at 19:00 Approved by: Isidro Saldaña M.D. on 06/09/2020 at 19:03
[2020-06-09 18:05] LABS: Lactate (Lactic Acid) 2.2 mmol/L (0.7-2.1)
[2020-06-09 18:06] LABS: Alanine Aminotransferase 89 IU/L (<35); Albumin Globulin Ratio 1.3 (1.0-2.8); Alkaline Phosphatase 157 U/L (38-126); Aspartate Aminotransferase 133 IU/L (14-36); BUN Creatinine Ratio 28.3 (6-22); Bilirubin Total 1.1 mg/dL (0.2-1.3); Blood Urea Nitrogen 36 mg/dL (7-17); Calcium 9.1 mg/dL (8.4-10.2); Carbon Dioxide 22 mmol/L (22-32); Chloride 104 mmol/L (98-107); Estimated Glomerular Filt Rate 42.6 mL/min (>60); Globulin 3.2 g/dL (1.7-4.1); Glucose 128 mg/dL (80-110); HEMOLYSIS < 15 (0-50); Potassium 5.1 mmol/L (3.4-5.1); Sodium 133 mmol/L (137-145); Total Protein 7.2 g/dL (6.3-8.2)
[2020-06-09 18:18] LABS: Troponin I 0.097 ng/mL (0.01-0.034)
[2020-06-09 19:30] LABS: NT-proBNP (BNP-Adult 18+) 11300 pg/mL (<125)
[2020-06-09 19:31] LABS: Reflexed Lactate in 2 Hours Y
[2020-06-09 20:17] LABS: Lactate 2HR (Lactic Acid Rflx) 1.8 mmol/L (0.7-2.1)
[2020-06-09 20:30] LABS: Troponin I 0.093 ng/mL (0.01-0.034)
[2020-06-09] MEDS: ONDANSETRON 4 MG/2 ML INJ IV (22:10)
[2020-06-09] MEDS: MORPHINE 2 MG/ML INJ IV (22:10)
== END 2020-06-10 00:11 | disposition short-term general hospital (02) ==
PROVIDERS: Emergency Medicine; Emergency Provider Emergency Medicine; Referring Provider Internal Medicine Hematology & Oncology
DX: J90 Pleural effusion, not elsewhere classified (principal); I30.9 Acute pericarditis, unspecified; R06.00 Dyspnea, unspecified; R53.1 Weakness; Z20.822 Contact with and (suspected) exposure to COVID-19; R00.0 Tachycardia, unspecified
CPT/HCPCS: 36415; 71275; 80053; 83605; 83880; 84484; 85025; 85379; 85610; 86850; 86900; 86901; 87635; 93005; 96361; 96374; 96375; 99284; C9803; J2270; J2405; Q9967